=== PATIENT | female | born 1960 | race Caucasian/White ===

== ENCOUNTER → 2021-09-28 | Outpatient (CLI) | payer MEDICAID ==
--- NOTE | 2021-09-28 09:43 | US ---
EXAMINATION TYPE: US carotid duplex BILAT DATE OF EXAM: 09/28/2021 COMPARISON: NONE CLINICAL HISTORY: I65.23 STENOSIS. Hypertension, Hyperlipidemia EXAM MEASUREMENTS: RIGHT: Peak Systolic Velocity (PSV) cm/sec ----- Right CCA: 96.8 ----- Right ICA: 131.7 ----- Right ECA: 91.9 ICA/CCA ratio: 1.4 RIGHT: End Diastole cm/sec ----- Right CCA: 28.5 ----- Right ICA: 34.3 ----- Right ECA: 18.2 LEFT: Peak Systolic Velocity (PSV) cm/sec ----- Left CCA: 106.2 ----- Left ICA: 135.0 ----- Left ECA: 123.7 ICA/CCA ratio: 1.3 LEFT: End Diastole cm/sec ----- Left CCA: 35.1 ----- Left ICA: 33.3 ----- Left ECA: 15.5 VERTEBRALS (direction of flow): Right Vertebral: Antegrade Left Vertebral: Antegrade Rhythm: Normal IMPRESSION: No evidence for hemodynamically significant stenosis. Criteria for Assigning % of Stenosis / Diameter reduction (Estimation based on the indirect measurements of the internal carotid artery velocities (ICA PSV). 1. Normal (no stenosis)=ICA PSV < 125 cm/s: ratio < 2.0: ICA EDV<40 cm/s. 2. Less than 50% stenosis=ICA PSV < 125 cm/s: ratio < 2.0: ICA EDV<40 cm/s. 3. 50 to 69% stenosis=ICA PSV of 125 to 230 cm/s: ration 2.0 ? 4.0: ICA EDV 40-100 cm/s. 4. Greater than 70% stenosis to near occlusion= ICA PSV > 230 cm/s: ratio > 4.0: ICA EDV > 100 cm/s. 5. Near occlusion= ICA PSV velocities may be low or undetectable: variable ratio and ICA EDV. 6. Total occlusion=unable to detect flow.
--- NOTE | 2021-09-28 14:24 | BD ---
EXAMINATION TYPE: Axial Bone Density DATE OF EXAM: 09/28/2021 COMPARISON: FIRST BONE DENSITY ....BASELINE TODAY CLINICAL HISTORY: 61 years year old Female. ICD-10 CODE: M81.0 OSTEOPORSIS Height: 62 Weight: 155 FRAX RISK QUESTIONS: Family History (Parent hip fracture): YES RISK FACTORS HISTORY OF: Family History of Osteoporosis: YES, MOTHER Active: YES Postmenopausal woman: YES, TOTAL HYST AT 50 YRS OLD Take estrogen and/or progesterone medications: YES, FOR ABOUT 10 YRS, STOPPED 2 MOS AGO Hyperparathyroidism: NO Adrenal Insufficiency: NO MEDICATIONS: Additional Medications: BP MEDS, REFLUX MEDS, STATIN FOR CHOLESTEROL, Additional History: HYPERTENSION, REFLUX, CHOLESTEROL, FAM HX OF HIP FX, RESULTING IN EXAM MEASUREMENTS: Bone mineral densitometry was performed using the [employer]. Bone mineral density as measured about the Lumbar spine is: ----- L1-L4(G/cm2): 1.098 T Score Values are as follows: ----- L1: -1.4 ----- L2: -1.0 ----- L3: -0.7 ----- L4: 0.0 ----- L1-L4: -0.7 Bone mineral density BASELINE DEXA STUDY Bone mineral density about the R hip (g/cm2): 0.835 Bone mineral density about the L hip (g/cm2): 0.848 T Score values are as follows: -----R Neck: -2.0 -----L Neck: -1.9 -----R Total: -1.4 -----L Total: -1.3 Bone mineral density BASELINE DEXA STUDY FRAX%s: The graph provided illustrates a 19.2% chance for a major osteoporotic fx and a 1.4% chance f or the hips probability for fx in 10 years time. IMPRESSION: Osteopenia NOTE: T-SCORE=SD OF THE YOUNG ADULT MEAN.
--- NOTE | 2021-10-01 17:37 | MM ---
Reason for Exam: Screening (asymptomatic). Patient History: Menarche at age 10. First Full-Term at age 16. Left ovary removed at age 50. Right ovary removed at age 50. Hysterectomy at age 50. Postmenopausal. Risk Values: Julianne 5 year model risk: 1.2%. NCI Lifetime model risk: 5.5%. Tissue Density: The breast tissue is heterogeneously dense. This may lower the sensitivity of mammography. Findings: Analyzed By CAD. Pattern appears symmetrical. Benign spherical calcifications within the left breast. No suspicious groups of microcalcifications, spiculated or lobular masses, architectural distortion or other secondary signs of malignancy are mammographically apparent. Overall Assessment: Benign, BI-RAD 2 Management: Screening Mammogram of both breasts in 1 year. A negative mammogram report should not preclude additional follow up of suspicious palpable abnormalities. Patient should continue monthly self breast exam. A clinical breast exam by your physician is recommended on an annual basis and results should be correlated with mammographic findings. Electronically signed and approved by: Mehran Steel D.O. Radiologis
== END | disposition home or self-care (01) ==
LOC: RADUSWWP 08:46
PROVIDERS: ATTEND Internal Medicine
DX: Z12.31 Encounter for screening mammogram for malignant neoplasm of breast (principal); R92.1 Mammographic calcification found on diagnostic imaging of breast; M85.89 Other specified disorders of bone density and structure, multiple sites; I10 Essential (primary) hypertension; E78.5 Hyperlipidemia, unspecified
CPT/HCPCS: 77067; 77080; 93880

== ENCOUNTER → 2021-11-12 | Outpatient (CLI) | payer MEDICAID | END | disposition home or self-care (01) | LOC: RADNMMAIN 07:53 | PROVIDERS: ATTEND Internal Medicine | DX: Z53.9 Procedure and treatment not carried out, unspecified reason (principal) ==

== ENCOUNTER → 2022-01-30 | Outpatient (CLI) | payer MEDICAID ==
--- NOTE | 2022-01-30 10:08 | XR ---
EXAMINATION TYPE: XR knee limited RT DATE OF EXAM: 01/30/2022 COMPARISON: NONE HISTORY: Pain TECHNIQUE: Three views are submitted. FINDINGS: Mild narrowing patellofemoral joint and medial compartment knee joint.. Osseous structures are intac t. No acute fracture seen. Small amount of fluid in the suprapatellar bursa. IMPRESSION: 1. Mild osteoarthritis..
== END | disposition home or self-care (01) ==
LOC: RADXRMAIN 09:45
PROVIDERS: ATTEND Internal Medicine
DX: M17.11 Unilateral primary osteoarthritis, right knee (principal)

== ENCOUNTER → 2023-02-17 | Outpatient (CLI) | payer BC ==
--- NOTE | 2023-02-17 11:46 | CA ---
Exercise Nuclear Stress Test Report Name: Cher Bates Exam Date: 02/17/2023 11:06 Exam Location: [facility] Ht (in): 63 Wt (lb): 160 BSA: 1.76 Ordering Phys: Armando Emerson MD Referring Phys: SHAUN, Technologist: ROGER,, Age: 63 Gender: F : 1960 Procedure CPT: Indications: I25.10 Athscl heart disease ICD-10 Codes: Patient History: Chest pain Medications: Meds past 24 hrs: Pretest Chest Pain: STRESS TEST Myke Protocol Exercise Duration (min:sec): 08:[address] Depressions (mm): Angina Score: Nance Score: Resting HR (bpm): 51 Peak HR (bpm): 155 Resting BP (mmHg): 122 / 53 Peak BP (mmHg): 196 / 120 MPHR: 156 Target HR: 133 % MPHR: 99 METS: 9.7 Total Dose: Peak Dose: Atropine: Double Product: 15691 BP Response: Stress Termination: Reached target heart rate Stress Symptoms: No chest pain or symptoms Stress Summary: The patient's target heart rate was achieved ECG ANALYSIS Resting ECG: Sinus rhythm. Normal conduction. No arrhythmias. Nonspecific ST-T abnormality. Stress ECG: No ECG evidence of ischemia with exercise. Nonspecific ST-T abnormality. CONCLUSIONS 1. Good exercise tolerance with nondiagnostic electrocardiographic stress testing secondary to baseline EKG abnormality 2. Nuclear images will be reported separately Dr. Braden Perales MD (Electronically Signed) Final Date: 17 February 2023 11:45
--- NOTE | 2023-02-17 12:35 | NM ---
EXAMINATION TYPE: NM stress cardiolite complete DATE OF EXAM: 02/17/2023 COMPARISON: NONE CLINICAL INDICATION: Female, 63 years old with history of I25.10 ATHSCL HEART DISEASE; TECHNIQUE: After the intravenous administration of 10.1 mCi Tc 99m Sestamibi - Rest images obtained 45 minutes post injection. The patient exercised using a LALITA protocol and 1 minute prior to peak exercise was injected with 24.6 mCi Tc 99m Sestamibi - Stress images obtained 20 minutes post injecti on. FINDINGS: Targeted heart rate was achieved during performance of the study. Review of stress and rest SPECT vivi ges demonstrates no distinct perfusion abnormality. Gated analysis shows normal wall motion with an estimated left ventricular ejection fraction of 60 %. IMPRESSION: No scintigraphic evidence for reversible ischemia
== END | disposition home or self-care (01) ==
LOC: RADNMMAIN 08:12
PROVIDERS: ATTEND Internal Medicine
DX: I25.10 Atherosclerotic heart disease of native coronary artery without angina pectoris (principal)
CPT/HCPCS: 93017; 78452; A9500

== ENCOUNTER → 2024-03-23 | Outpatient (CLI) | payer MEDICARE ==
--- NOTE | 2024-03-23 10:42 | XR ---
EXAMINATION TYPE: XR lumbar spine 2 or 3V DATE OF EXAM: 03/23/2024 10:17 AM COMPARISON: None CLINICAL INDICATION: Female, 64 years old with history of M47.26 OTHER SPONDYLOSIS WITH RADICULOPATHY , LUMBA; H TECHNIQUE: XR lumbar spine 2 or 3V - Frontal, lateral and coned in L5-S1 lateral views of the spine. FINDINGS: No evidence of any acute osseous pathology. No evidence of loss of vertebral body height i s seen. There is scoliosis alignment of the lumbar vertebral bodies. Scattered disc space narrowing. Multilevel marginal osteophyte formation throughout the visualized spine. There is facet joint arthro arlene throughout the spine. Scattered at least mild neural foraminal stenosis. Atherosclerosis of the arterial vasculature. IMPRESSION: 1. No acute fracture. 2. Moderate multilevel disc degeneration. [facility], , 03/23/2024 10:39 AM
== END | disposition home or self-care (01) ==
LOC: RADXRMAIN 09:51
PROVIDERS: ATTEND Internal Medicine
DX: M47.26 Other spondylosis with radiculopathy, lumbar region (principal)
CPT/HCPCS: 72100

== ENCOUNTER → 2024-03-31 | Outpatient (CLI) | payer MEDICARE ==
--- NOTE | 2024-03-31 16:05 | US ---
EXAMINATION TYPE: US venous doppler duplex LE LT DATE OF EXAM: 03/31/2024 3:39 PM COMPARISON: NONE CLINICAL INDICATION: Female, 64 years old with history of M79.662 PAIN IN LEFT LOWER LEG; Pt had a re cent fall and is having pain in left lower leg and numbness in toes and hamstring TECHNIQUE: The lower extremity deep venous system is examined utilizing real time linear array sonog tiffani with graded compression, color doppler sonography, and spectral doppler. SIDE PERFORMED: Left FINDINGS: VESSELS IMAGED: Common Femoral Vein Deep Femoral Vein Greater Saphenous Vein * Femoral Vein Popliteal Vein Small Saphenous Vein * Proximal Calf Veins (* superficial vessels) Left Leg: Negative for DVT, Color Doppler imaging shows patency of the vessels. Spectral waveforms a re within normal limits. IMPRESSION: No ultrasound evidence for deep venous thrombosis. [facility], , 03/31/2024 4:02 PM
== END | disposition home or self-care (01) ==
LOC: RADUSWWP 14:56
PROVIDERS: ATTEND Internal Medicine
DX: M79.662 Pain in left lower leg (principal)